=== PATIENT | female | born 1940 | race Caucasian/White ===

== ENCOUNTER 2019-06-18 08:23 | Day surgery (SDC) | payer MEDICARE, BC ==
[~2019-06-18] VITALS: Ht 175.3 cm; Wt 72.6 kg
[~2019-06-18 08:23] MED LIST: BUPIVACAINE/PF-EPI 0.25% 1:200K ONE; GENTAMICIN 80 MG/2 ML ONE
[2019-06-18] MEDS ORDERED: LACTATED RINGERS 1,000 ML IV SCH (08:47)
[2019-06-18] MEDS ORDERED: PLEASE ENTER ALLERGIES MC SCH (09:00)
[2019-06-18] MEDS ORDERED: FAMOTIDINE 20 MG TABLET PO ONE (09:00)
[2019-06-18] MEDS ORDERED: SCOPOLAMINE PATCH, 1.5MG PATCH.TD72 TD ONE ×2 (09:00→09:14)
[2019-06-18] MEDS ORDERED: LIDOCAINE-MPF 1%, 2ML INFIL ONE (09:00)
[2019-06-18] MEDS ORDERED: PROBIOTIC PO (09:05)
[2019-06-18] MEDS ORDERED: VITAMIN D3 PO (09:05)
[2019-06-18] MEDS ORDERED: GLUC1TAB27 PO (09:05)
[2019-06-18] MEDS ORDERED: VITAMIN C PO (09:05)
[2019-06-18 09:09] VITALS: BP 144/85
[2019-06-18] MEDS ORDERED: LIDOCAINE-MPF 1%, 2ML ONE (09:14)
[2019-06-18] MEDS ORDERED: FAMOTIDINE 20 MG TABLET ONE (09:14)
[2019-06-18] MEDS ORDERED: PLEASE ENTER HEIGHT AND WEIGHT MC SCH (09:30)
[2019-06-18] MEDS ORDERED: DEXAMETHASONE 4 MG/ML, 1ML ONE (13:34)
[2019-06-18] MEDS ORDERED: PROPOFOL 10 MG/ML, 20ML ONE (13:34)
[2019-06-18] MEDS ORDERED: FENTANYL PF 100 MCG/2ML ONE (13:34)
[2019-06-18] MEDS ORDERED: ROCURONIUM 10MG/ML,5ML ONE (13:34)
[2019-06-18] MEDS ORDERED: LIDOCAINE-MPF 2% ,5ML ONE (13:34)
[2019-06-18] MEDS ORDERED: GLYCOPYRROLATE 0.2MG/1ML, 5ML ONE (13:34)
[2019-06-18] MEDS ORDERED: MIDAZOLAM 1 MG/ML, 2ML ONE (13:35)
[2019-06-18] MEDS ORDERED: ONDANSETRON 2MG/ML, 2ML IV PRN (14:30)
[2019-06-18] MEDS ORDERED: ALBUTEROL/IPRATROPIUM 2.5MG/0.5MG, 3 ML NPPB PRN (14:30)
[2019-06-18] MEDS ORDERED: FENTANYL PF 100 MCG/2ML IV PRN (14:30)
[2019-06-18] MEDS ORDERED: MEPERIDINE/PF 25MG/ML,1ML IVPush PRN (14:30)
[2019-06-18] MEDS ORDERED: EPHEDRINE 50 MG/ML, 1ML IM PRN (14:30)
[2019-06-18] MEDS ORDERED: hydrALAzine 20 MG/ML, 1ML IV PRN (14:30)
[2019-06-18] MEDS ORDERED: MORPHINE SULFATE 4 MG/ML, 1ML IVPush PRN (14:30)
[2019-06-18] MEDS ORDERED: MIDAZOLAM 1 MG/ML, 2ML IV PRN (14:30)
[2019-06-18] MEDS ORDERED: OXYcodone 5 MG/5 ML ORAL.SOL UDC PO PRN (14:30)
[2019-06-18] MEDS ORDERED: DIPHENHYDRAMINE 50 MG/ML, 1ML IVPush PRN (14:30)
[2019-06-18] MEDS ORDERED: METOCLOPRAMIDE 5 MG/ML, 2ML IV PRN (14:30)
[2019-06-18] MEDS ORDERED: LABETALOL 5MG/ML, 20ML IV PRN (14:30)
[2019-06-18] MEDS ORDERED: EPHEDRINE 50 MG/ML, 1ML IVPush PRN (14:30)
[2019-06-18] MEDS ORDERED: HYDROcodone/APAP 7.5-325MG/15ML UDC PO PRN (14:30)
[2019-06-18] MEDS ORDERED: DEXAMETHASONE 4 MG/ML, 1ML IV PRN (14:30)
[2019-06-18] MEDS ORDERED: HYDROmorphone 2 MG/ML, 1ML IVPush PRN (14:30)
[2019-06-18] MEDS ORDERED: METOPROLOL 1 MG/ML, 5ML ONE (14:33)
[2019-06-18] MEDS ORDERED: CEFAZOLIN 1,000 MG ONE (14:33)
== END 2019-06-18 18:30 | disposition home or self-care (01) ==
LOC: OUT 08:23
PROVIDERS: ATTEND Obstetrics & Gynecology Female Pelvic Medicine and Reconstructive Surgery
DX: N81.4 Uterovaginal prolapse, unspecified (principal); N39.46 Mixed incontinence; N32.81 Overactive bladder
CPT/HCPCS: 57265; 57282; 57288; 93005; C1771; J0690; J1100; J1580; J2250; J2704; J3010; J7120